=== PATIENT | female | born 1985 | race Caucasian/White ===

== ENCOUNTER 2019-05-01 08:48 | Day surgery (SDC) | payer OTHER ==
[~2019-05-01 08:48] MED LIST: AMOX1TAB12 PO; TUSSI PRES-B L120 M1 PO; [UNRECOGNIZED DRUG - REMARK] PO
== END 2019-05-01 16:45 | disposition home or self-care (01) ==
LOC: CIR.AMB 08:48
DX: Z30.2 Encounter for sterilization (principal); Z64.1 Problems related to multiparity; N83.292 Other ovarian cyst, left side; N83.291 Other ovarian cyst, right side